=== PATIENT | male | born 1930 ===

== ENCOUNTER → 2018-06-22 | Outpatient (CLI) | payer MEDICARE | END | disposition home or self-care (01) | LOC: LAB 10:16 → LAB SHORT 10:16 | DX: B02.1 Zoster meningitis (principal); R21 Rash and other nonspecific skin eruption; D48.5 Neoplasm of uncertain behavior of skin; L57.0 Actinic keratosis; L81.4 Other melanin hyperpigmentation; L82.1 Other seborrheic keratosis; D16.01 Benign neoplasm of scapula and long bones of right upper limb; D22.5 Melanocytic nevi of trunk; D22.71 Melanocytic nevi of right lower limb, including hip; D22.72 Melanocytic nevi of left lower limb, including hip | CPT/HCPCS: 87798 ==